=== PATIENT | male | born 2005 | race Caucasian/White ===

== ENCOUNTER 2025-03-23 14:45 | Observation (INO) ==
--- NOTE | 2025-03-23 15:08 | Emergency Department Note ---
History of Present Illness General Chief complaint: Shortness of Breath/Dyspnea Stated complaint: SOB, STRUGGLING TO BREATH Time Seen by Provider: 03/23/25 14:54 History of Present Illness This is a 19-year-old male who presents to the emergency department via private vehicle with complaints of "shortness of breath, struggling to breathe". The patient states that earlier today he began with dyspnea. This was unprovoked. He notes history of childhood asthma but notes he has not experience any wheezing today and has not had any asthma exacerbations since a child. He denies any chest pain. Patient denies any pertinent past medical history, surgeries or medication allergies. No exacerbating or alleviating factors. The patient did note he drank coffee earlier today but that is not unusual for him. He denies any drug use. Occasional alcohol use but not regular. No smoking. Home Medications Medication Instructions Recorded Confirmed Type No Known Home Medications 03/23/25 03/23/25 History Allergies Allergy/AdvReac Type Severity Reaction Status Date / Time No Known Allergies Allergy Verified 08/15/23 19:53 Past Med/Surg History Problem List (Updated 03/23/25 @ 20:58 by Shmuel Elmore PA-C) Frequent PVCs (Acute) Dyspnea (Acute) No significant past surgical history No chronic diseases present Medical History No chronic diseases present Surgical History No significant past surgical history Social History Smoking Status: Never smoker Preferred Language: Sinhala Feels Safe at Home: Yes Review of Systems A total of 10 systems reviewed and were otherwise negative Physical Exam Vital Signs Vital Signs - 24 hr 03/23/25 14:46 03/23/25 15:03 03/23/25 15:04 Temperature 36.8 C Temperature Source Temporal Artery Scan Pulse Rate 83 66 Pulse Rhythm Respiratory Rate 12 14 Respiratory Effort / Characteristics Non-Labored Respiratory Depth Normal Blood Pressure 153/89 H 146/101 H Blood Pressure Mean 110 116 Pulse Oximetry 100 99 99 Oxygen Delivery Method Room Air Room Air Room Air Oxygen Flow Rate 0 Sepsis Recent Fever Within 48 Hours No Sepsis New/Unexplained Change in Mental Status N/A Sepsis Action Taken by Nursing No Action Required 03/23/25 15:14 03/23/25 15:30 03/23/25 15:44 Temperature Temperature Source Pulse Rate 66 67 62 Pulse Rhythm Regular Respiratory Rate 14 14 Respiratory Effort / Characteristics Respiratory Depth Blood Pressure 125/75 Blood Pressure Mean 96 Pulse Oximetry 99 96 Oxygen Delivery Method Room Air Oxygen Flow Rate Sepsis Recent Fever Within 48 Hours Sepsis New/Unexplained Change in Mental Status Sepsis Action Taken by Nursing 03/23/25 16:33 03/23/25 16:33 03/23/25 17:00 Temperature Temperature Source Pulse Rate 65 65 77 Pulse Rhythm Respiratory Rate 18 18 13 Respiratory Effort / Characteristics Respiratory Depth Blood Pressure 123/76 Blood Pressure Mean 98 Pulse Oximetry 96 Oxygen Delivery Method Oxygen Flow Rate Sepsis Recent Fever Within 48 Hours Sepsis New/Unexplained Change in Mental Status Sepsis Action Taken by Nursing 03/23/25 18:30 03/23/25 19:06 Temperature Temperature Source Pulse Rate 59 L 71 Pulse Rhythm Respiratory Rate 20 Respiratory Effort / Characteristics Respiratory Depth Blood Pressure Blood Pressure Mean Pulse Oximetry 99 Oxygen Delivery Method Oxygen Flow Rate Sepsis Recent Fever Within 48 Hours Sepsis New/Unexplained Change in Mental Status Sepsis Action Taken by Nursing VITAL SIGNS - Vital signs and nursing notes were reviewed. Stable and afebrile. GENERAL -19-year-old male appearing his stated age who is in no acute distress. Communicates well with provider and answers questions appropriately. SKIN - Without rashes. No meningeal or petechial rash. HEAD - NC/AT. EYES -pupils are dilated but otherwise PERRL with EOMI bilaterally. Sclera anicteric. EARS - No deformities of external structures noted on gross examination bilaterally. NOSE - Midline and without cyanosis. No epistaxis or purulent drainage noted. MOUTH/OROPHARYNX - Without perioral cyanosis. NECK - Neck with FROM. No nuchal rigidity. LUNGS - CTA CARDIAC - RRR ABDOMEN - Abdominal contour normal without pulsations or visible masses. BS normoactive all four quadrants. No tenderness, palpable masses, hepatosplenomegaly, or ascites noted. EXTREMITIES - No clubbing or peripheral cyanosis. +5/5 strength noted in UE/LE bilaterally. NEUROLOGIC - Cranial nerves grossly intact. Sensory intact to light touch throughout PSYCH -alert, oriented and pleasant on exam. Course Administered Medications Discontinued Medications Potassium Chloride (Potassium Chloride Crtab 20 Meq Tabcr) 20 meq PO NOW STA Stop: 03/23/25 16:33 Last Admin: 03/23/25 17:37 Dose: 20 meq Documented By: REJI Medical Decision Making Laboratory Data 03/23/25 15:13 03/23/25 15:13 Lab Results 03/23/25 03/23/25 Range/Units 15:13 16:59 WBC 7.74 (4.8-10.8) K/ul RBC 5.72 (4.70-6.10) M/uL Hgb 16.8 (14.0-18.0) g/dl Hct 48.1 (42.0-52.0) % MCV 84.1 (80.0-100.0) fL MCH 29.4 (25.0-34.0) pg MCHC 34.9 (32.0-36.0) g/dL RDW Std Deviation 38.1 (36.4-46.3) fL RDW Coeff of Magdalena 12.5 (11.5-14.5) % Plt Count 236 (130-400) K/uL MPV 9.4 (9.4-12.4) fL Immature Gran % (Auto) 0.4 % Neut % (Auto) 72.6 % Lymph % (Auto) 18.7 % [place] % (Auto) 6.5 % Eos % (Auto) 1.0 % Baso % (Auto) 0.8 % Neut # (Auto) 5.62 (1.40-6.50) K/uL Lymph # (Auto) 1.45 (1.20-3.40) K/uL [place] # (Auto) 0.50 (0.11-0.59) K/uL Eos # (Auto) 0.08 (0.00-0.50) K/uL Baso # (Auto) 0.06 (0.00-0.20) K/uL Immature Gran # (Auto) 0.03 (0.01-0.20) K/uL PT 11.1 (9.0-12.0) Seconds INR 1.0 (0.9-1.1) APTT 32 H (21-31) Seconds PTT Ratio 1.2 D-Dimer < 190 (0-500) ug/L FEU Sodium 136 (136-145) mmol/L Potassium 3.3 L (3.5-5.1) mmol/L Chloride 100 (98-107) mmol/L Carbon Dioxide 24 (21-32) mmol/L Anion Gap 12 H (3-11) BUN 19 (6-23) mg/dl Creatinine 0.87 (0.6-1.4) mg/dl Est Cr Clr Drug Dosing 130.5 ml/min eGFR 125.90 BUN/Creatinine Ratio 21.8 H (10-20) Glucose 102 H (70-99(Fasting)) mg/dl Calcium 10.1 (8.6-10.3) mg/dl Magnesium 2.0 (1.7-2.4) mg/dl Total Bilirubin 0.6 (0.2-1.0) mg/dl AST 26 (13-39) U/L ALT 25 (7-52) U/L Alkaline Phosphatase 61 (34-104) U/L Troponin I High Sens < 2.3 < 2.3 (0-20) pg/ml Total Protein 7.9 (6.0-8.3) gm/dl Albumin 5.0 (3.4-5.0) gm/dl Globulin 2.9 (2.5-4.0) gm/dl Albumin/Globulin Ratio 1.7 (0.9-2) TSH 3.152 (0.300-4.500) uIu/ml Lyme Disease Screen Negative (Negative) Imaging Data Radiologist's Impression: Chest X-Ray 03/23/25 15:07 XR chest 1V portable CLINICAL HISTORY: dyspnea COMPARISON STUDY: None FINDINGS: Heart size and pulmonary vasculature are normal. No consolidation or pleural effusion. No pneumothorax. IMPRESSION: No acute findings. ACT 112: Negative or not required by law. Electronically signed by: Hayden Persaud M.D. 03/23/2025 3:[address] [facility] Narrative Patient was seen and evaluated as above in room B4. Review was performed of triage nursing notes and vital signs. I did review pertinent previous visits and patient history. After obtaining a thorough history and physical examination the above work up was performed. Patient presents to us today for evaluation of dyspnea. Please see HPI for full details. The patient has stable vital signs. Options of care were discussed with the patient. IV access was established. Labs were drawn. EKG was performed. This reveals sinus rhythm at a rate of 64 bpm. PVCs noted. QTc 443. QRS 100. There is no ST elevation. Left axis deviation. Chest x-ray negative. CBC reveals no leukocytosis or concerning anemia. D-dimer within normal range making PE less likely. Hypokalemia 3.3 which was repleted orally. There is no evidence of kidney or liver failure. Troponin x 2 negative. TSH was euthyroid state. Lyme testing negative. The patient does have frequent PVCs noted on the traffic monitor specialist. It is possible that he is symptomatic with some of the frequent PVCs. 1757: I spoke with cardiology Dr. Bah. Our initial discussion was for outpatient follow-up and likely outpatient echocardiogram. I discussed this with patient and mother via phone as the patient did have mother on speaker phone when I discussed findings. The mother does add that the patient's uncle passed from cardiac arrest in his 20s. I discussed options. We will proceed with cardiac monitoring overnight and likely echocardiogram tomorrow. I discussed this with the hospitalist service. Please refer to further documentation regarding his stay. GCS: 15 In the evaluation and treatment of this patient the following differential diagnoses were entertained: Arrhythmia, electrolyte disturbance, ACS, CO, PE, among others Impression & Plan Dyspnea, Frequent PVCs Discharge Plan Visit Data Chief Complaint: Shortness of Breath/Dyspnea Stated Complaint: SOB, STRUGGLING TO BREATH ED Provider: Lane Liang ED Midlevel Provider: Shmuel Elmore Discharge Problem: Dyspnea, Frequent PVCs Patient Disposition: Admitted As Inpatient Condition: Good Forms Stand Alone Forms: My [employer] Prescriptions Prescriptions: No Action No Known Home Medications Referrals Referrals: [facility] [Primary Care Provider] -
--- NOTE | 2025-03-23 15:27 | XRay Report ---
XR chest 1V portable CLINICAL HISTORY: dyspnea COMPARISON STUDY: None FINDINGS: Heart size and pulmonary vasculature are normal. No consolidation or pleural effusion. No p neumothorax. IMPRESSION: No acute findings. ACT 112: Negative or not required by law. Electronically signed by: Hayden Persaud M.D. 03/23/2025 3:25 PM
[2025-03-23 15:32] LABS: Hematocrit (blood only) 48.1 % (42.0-52.0); Hemoglobin 16.8 g/dl (14.0-18.0); Immature Granulocytes # (auto) 0.03 K/uL (0.01-0.20); Immature Granulocytes % (auto) 0.4 %; Mean Corpuscular Hemoglobin 29.4 pg (25.0-34.0); Mean Corpuscular Volume 84.1 fL (80.0-100.0); Platelet Count 236 K/uL (130-400); RDW Standard Deviation 38.1 fL (36.4-46.3); Red Blood Count 5.72 M/uL (4.70-6.10); White Blood Count 7.74 K/ul (4.8-10.8)
[2025-03-23 15:49] LABS: Alanine Aminotransferase 25 U/L (7-52); Albumin Globulin Ratio 1.7 (0.9-2); Alkaline Phosphatase 61 U/L (34-104); Anion Gap 12 (3-11); Bilirubin,Total 0.6 mg/dl (0.2-1.0); Blood Urea Nitrogen 19 mg/dl (6-23); Calcium 10.1 mg/dl (8.6-10.3); Carbon Dioxide 24 mmol/L (21-32); Chloride 100 mmol/L (98-107); Creatinine Clr Calc Pharmacy 130.5 ml/min; Globulin 2.9 gm/dl (2.5-4.0); Glucose 102 mg/dl (70-99(Fasting)); Magnesium 2.0 mg/dl (1.7-2.4); Potassium 3.3 mmol/L (3.5-5.1); Sodium 136 mmol/L (136-145); Total Protein 7.9 gm/dl (6.0-8.3)
[2025-03-23 16:05] LABS: Thyroid Stimulating Hormone 3.152 uIu/ml (0.300-4.500)
[2025-03-23 16:20] LABS: INR 1.0 (0.9-1.1); Partial Thromboplastin Time 32 Seconds (21-31); Prothrombin Time 11.1 Seconds (9.0-12.0)
[2025-03-23] MEDS: POTASSIUM CHLORIDE CRTAB 20 MEQ TABCR PO STA (17:37)
--- NOTE | 2025-03-23 20:53 | History & Physical Report ---
Date of Service March 23, 2025 Assessment & Plan (1) Frequent PVCs: (2) Dyspnea: (3) No significant past surgical history: (4) No chronic diseases present: (5) Asthma: Plan 19 yrs old male presents with SOB with PMH of asthma, On observation to monitor overnight on telemetry with EKG presentation of PVC. #Dyspnea: - A day of sob with Ekg finding of PVC. - D-dimer negative, Lyme negative which r/o the possibility of any myocarditis. - Troponin negative . - Ordered Echo bubble study to r/o structural heart disease, valvular disease, HOCM. - Ordered Urine drug screen to r/o any use of stimulants. - Will r/o the possibility of HOCM findings in echo because of family H/o cardiac arrest in uncle and the presentation with SOB. - Will monitor overnight on telemetry. History of Present Illness Chief Complaint: Shortness of breath x today morning Primary Care Provider: [facility] 19 yrs old male with PMH of asthma presents to the ED with shortness of breath after he woke up today morning, started suddenly when he started studying for tomorrow's exam, exacerbated on activity so he laid down on bed which improved his sob. Also associated with palpitations. Lasted for total of 3 hrs and made him visit to ED. H/o cardiac arrest in uncle at age of 27. Reports mood to be good. Never had asthma attack since he was kid. No H/o chest pain, fever, cough. Allergies Allergy/AdvReac Type Severity Reaction Status Date / Time No Known Allergies Allergy Verified 08/15/23 19:53 Home Medications Medication Instructions Recorded Confirmed Type No Known Home Medications 03/23/25 03/23/25 History Past Med/Surg History Problem List Asthma Frequent PVCs (Acute) Dyspnea (Acute) No significant past surgical history No chronic diseases present Social History Smoking Status: Never smoker Hx Alcohol Use: Yes Alcohol type: beer Hx Substance Use: No Preferred Language: Urdu Communication Ability: Effective Cuff Maker Required: No Beliefs That Will Affect Care: None Current Living Situation: Other Other Information That Helps Us Care for You: No Feels Safe at Home: Yes Safety Concerns: Feels Safe At This Time Assistive Devices: Contacts and Glasses Review of Systems Review of Systems: As per HPI. Physical Exam Physical Exam: GENERAL -No acute distress SKIN - No rash. HEENT- B/l dilated pupil. Other examination unremarkable. LUNGS - B/l equal breath soounds. CARDIAC - Normal rate and rhythm, NO murmur, gallops. ABDOMEN - Abdominal contour normal without pulsations or visible masses. BS normoactive all four quadrants. No tenderness, palpable masses, hepatosplenomegaly, or ascites noted. EXTREMITIES - No clubbing or peripheral cyanosis. +5/5 strength noted in UE/LE bilaterally. NEUROLOGIC - Cranial nerves grossly intact. Sensory intact to light touch throughout PSYCH -alert, oriented and pleasant on exam. Results & Data Results & Data Vital Signs (Past 12 Hours) Vital Signs Temp Pulse Resp BP Pulse Ox O2 Del Method O2 Flow Rate 03/23/25 19:06 71 03/23/25 18:30 59 L 20 99 03/23/25 17:00 77 13 03/23/25 16:33 65 18 03/23/25 16:33 65 18 123/76 96 03/23/25 15:44 62 03/23/25 15:30 67 14 125/75 96 03/23/25 15:14 66 14 99 Room Air 03/23/25 15:04 66 14 146/101 H 99 Room Air 03/23/25 15:03 99 Room Air 0 03/23/25 14:46 36.8 C 83 12 153/89 H 100 Room Air Laboratory Results Laboratory Results WBC 7.74 K/ul (4.8-10.8) 03/23/25 15:13 RBC 5.72 M/uL (4.70-6.10) 03/23/25 15:13 Hgb 16.8 g/dl (14.0-18.0) 03/23/25 15:13 Hct 48.1 % (42.0-52.0) 03/23/25 15:13 MCV 84.1 fL (80.0-100.0) 03/23/25 15:13 MCH 29.4 pg (25.0-34.0) 03/23/25 15:13 MCHC 34.9 g/dL (32.0-36.0) 03/23/25 15:13 RDW Std Deviation 38.1 fL (36.4-46.3) 03/23/25 15:13 RDW Coeff of Magdalena 12.5 % (11.5-14.5) 03/23/25 15:13 Plt Count 236 K/uL (130-400) 03/23/25 15:13 MPV 9.4 fL (9.4-12.4) 03/23/25 15:13 Immature Gran % (Auto) 0.4 % 03/23/25 15:13 Neut % (Auto) 72.6 % 03/23/25 15:13 Lymph % (Auto) 18.7 % 03/23/25 15:13 [place] % (Auto) 6.5 % 03/23/25 15:13 Eos % (Auto) 1.0 % 03/23/25 15:13 Baso % (Auto) 0.8 % 03/23/25 15:13 Neut # (Auto) 5.62 K/uL (1.40-6.50) 03/23/25 15:13 Lymph # (Auto) 1.45 K/uL (1.20-3.40) 03/23/25 15:13 [place] # (Auto) 0.50 K/uL (0.11-0.59) 03/23/25 15:13 Eos # (Auto) 0.08 K/uL (0.00-0.50) 03/23/25 15:13 Baso # (Auto) 0.06 K/uL (0.00-0.20) 03/23/25 15:13 Immature Gran # (Auto) 0.03 K/uL (0.01-0.20) 03/23/25 15:13 PT 11.1 Seconds (9.0-12.0) 03/23/25 15:13 INR 1.0 (0.9-1.1) 03/23/25 15:13 APTT 32 Seconds (21-31) H 03/23/25 15:13 PTT Ratio 1.2 03/23/25 15:13 D-Dimer < 190 ug/L FEU (0-500) 03/23/25 15:13 Sodium 136 mmol/L (136-145) 03/23/25 15:13 Potassium 3.3 mmol/L (3.5-5.1) L 03/23/25 15:13 Chloride 100 mmol/L (98-107) 03/23/25 15:13 Carbon Dioxide 24 mmol/L (21-32) 03/23/25 15:13 Anion Gap 12 (3-11) H 03/23/25 15:13 BUN 19 mg/dl (6-23) 03/23/25 15:13 Creatinine 0.87 mg/dl (0.6-1.4) 03/23/25 15:13 Est Cr Clr Drug Dosing 130.5 ml/min 03/23/25 15:13 eGFR 125.90 03/23/25 15:13 BUN/Creatinine Ratio 21.8 (10-20) H 03/23/25 15:13 Glucose 102 mg/dl (70-99(Fasting)) H 03/23/25 15:13 Calcium 10.1 mg/dl (8.6-10.3) 03/23/25 15:13 Magnesium 2.0 mg/dl (1.7-2.4) 03/23/25 15:13 Total Bilirubin 0.6 mg/dl (0.2-1.0) 03/23/25 15:13 AST 26 U/L (13-39) 03/23/25 15:13 ALT 25 U/L (7-52) 03/23/25 15:13 Alkaline Phosphatase 61 U/L (34-104) 03/23/25 15:13 Troponin I High Sens < 2.3 pg/ml (0-20) 03/23/25 16:59 Total Protein 7.9 gm/dl (6.0-8.3) 03/23/25 15:13 Albumin 5.0 gm/dl (3.4-5.0) 03/23/25 15:13 Globulin 2.9 gm/dl (2.5-4.0) 03/23/25 15:13 Albumin/Globulin Ratio 1.7 (0.9-2) 03/23/25 15:13 TSH 3.152 uIu/ml (0.300-4.500) 03/23/25 15:13 Urine Opiates Screen Neg (Neg) 03/23/25 21:55 Ur Methadone, Qual Neg (Neg) 03/23/25 21:55 Urine Fentanyl Screen Neg (Neg) 03/23/25 21:55 Urine Barbiturates Neg (Neg) 03/23/25 21:55 Ur Phencyclidine (PCP) Neg (Neg) 03/23/25 21:55 U Amphetamin/Meth Scrn Neg (Neg) 03/23/25 21:55 MDMA (Ecstasy) Screen Neg (Neg) 03/23/25 21:55 U Benzodiazepines Scrn Neg (Neg) 03/23/25 21:55 Ur Cocaine Metabolite Neg (Neg) 03/23/25 21:55 U Marijuana (THC) Screen Neg (Neg) 03/23/25 21:55 Lyme Disease Screen Negative (Negative) 03/23/25 15:13 Impressions Chest X-Ray 03/23/25 15:07 XR chest 1V portable CLINICAL HISTORY: dyspnea COMPARISON STUDY: None FINDINGS: Heart size and pulmonary vasculature are normal. No consolidation or pleural effusion. No pneumothorax. IMPRESSION: No acute findings. ACT 112: Negative or not required by law. Electronically signed by: Hayden Persaud M.D. 03/23/2025 3:25 PM ECG Additional Comments: EKG reviewed, SR with PVCs, KB=287, ZWE=461. GRs=700, low voltage QRS, leftward axis Supervising Physician Co-Signing Physician Notes Patient seen and examined, chart reviewed, case discussed with Dr. Swartz and I agree with the assessment and plan as above. In brief, patient is a 19yo male with history of asthma presenting with palpitations and shortness of breath. No history of prior. Patient began experiencing episodes of palpitations today with difficulty breathing. No chest pain. Denies drug use, or excess caffeine. Patient is active - runner and lifts weights. Has never experienced shortness of breath, palpitations lightheadedness or syncope during or following activity. No personal cardiac history but does have an uncle that of a cardiac arrest at age 27 (uncle had history of persistent seizures, ?SUDE vs other etiology?) On exam patient is afebrile, HD stable +S1/S2, regular, no m/r/g, no murmur auscultated with handgrip Lungs CTA Abd soft, NT/ND Ext warm, well perfused Labs and images reviewed, Mildly low K. TSH WNL. UTox is unremarkable as is Lyme screen. Troponin x 7 NEGATIVE. Labs otherwise unremarkable CXR with normal cardiac silhouette, no evidence of failure EKG as above with PVCs Assessment/Plan -Telemetry monitoring -Check 2D echo with bubble study -BMP in AM with additional K if needed -Remainder as above Resident Activity Tracking Resident Involvement: Resident Care Provided Care Provided: Adult Hospital Medicine
[2025-03-23] MEDS ORDERED: ALUMINUM/MAGNESIUM SUSP 30 ML UDC PO PRN (21:02)
[2025-03-23] MEDS ORDERED: ACETAMINOPHEN 325 MG TAB PO PRN (21:02)
[2025-03-23] MEDS ORDERED: ONDANSETRON INJ 2 MG/ML 2 ML VIAL IV PRN (21:02)
[2025-03-23] MEDS ORDERED: MAGNESIUM HYDROXIDE SUSP 30 ML UDC PO PRN (21:02)
[2025-03-23] MEDS ORDERED: POLYETHYLENE (MIRALAX) 17 GM PACK PO PRN (21:02)
[2025-03-23] MEDS ORDERED: MELATONIN 3 MG TAB PO PRN (21:02)
[2025-03-23 22:56] LABS: Amphetamines+Metham, Urine Neg (Neg); MDMA (Ecstacy), Urine Neg (Neg); Marijuana, Urine Neg (Neg)
[2025-03-23 23:15] VITALS: RESP 18
--- NOTE | 2025-03-24 01:54 | Billing Data ---
Date of Service March 23, 2025 Coding Level of Care Code 22482 INT INP/OBS CARE
[2025-03-24 06:42] LABS: Anion Gap 9.0 (3-11); Blood Urea Nitrogen 19.0 mg/dl (6-23); Calcium 9.6 mg/dl (8.6-10.3); Carbon Dioxide 26.0 mmol/L (21-32); Chloride 103.0 mmol/L (98-107); Creatinine Clr Calc Pharmacy 123.5 ml/min; Glucose 88.0 mg/dl (70-99(Fasting)); Potassium 3.8 mmol/L (3.5-5.1); Sodium 138.0 mmol/L (136-145)
--- NOTE | 2025-03-24 09:52 | Hospitalist Progress Note ---
Date of Service March 24, 2025 Assessment & Plan (1) Frequent PVCs: (2) Dyspnea: (3) No significant past surgical history: (4) No chronic diseases present: (5) Asthma: Plan 19 yrs old male presents with SOB with PMH of asthma, On observation to monitor overnight on telemetry with EKG presentation of PVC. #Dyspnea: - A day of sob with Ekg finding of PVC. - D-dimer negative, Lyme negative which r/o the possibility of any myocarditis. - Troponin negative . - Ordered Echo bubble study to r/o structural heart disease, valvular disease, HOCM. - Ordered Urine drug screen to r/o any use of stimulants. - Will r/o the possibility of HOCM findings in echo because of family H/o cardiac arrest in uncle and the presentation with SOB. - Will monitor overnight on telemetry. Admission and Anticipated Discharge Date Admission Date: March 23, 2025 Results & Data Results & Data Vital Signs (Past 12 Hours) Vital Signs Temp Pulse Pulse Resp BP BP Pulse Ox 03/24/25 07:37 36.2 C L 60 18 114/67 97 03/23/25 23:07 36.6 C 72 18 128/85 95 03/23/25 23:02 62 03/23/25 22:33 63 15 98 03/23/25 22:30 128/78 03/23/25 22:30 128/78 03/23/25 22:21 54 L 16 98 03/23/25 22:15 69 15 96 03/23/25 22:00 125/77 03/23/25 22:00 125/77 03/23/25 21:57 63 14 96 O2 Del Method 03/24/25 07:37 Room Air 03/23/25 23:07 Room Air 03/23/25 23:02 03/23/25 22:33 03/23/25 22:30 03/23/25 22:30 03/23/25 22:21 03/23/25 22:15 03/23/25 22:00 03/23/25 22:00 03/23/25 21:57
[2025-03-24 11:06] LABS: Cholesterol 210.0 mg/dl (0-200); HDL Cholesterol 61.0 mg/dl; Triglycerides 113.0 mg/dl (0-150)
[2025-03-24 11:22] VITALS: BP 129/67; TEMP 98.1; O2SAT 96
--- NOTE | 2025-03-24 14:22 | XCELERA ---
[id number]
[2025-03-24 15:05] VITALS: PULSE 75
--- NOTE | 2025-03-24 17:39 | Discharge Summary ---
Date of Service March 24, 2025 Admission HPI Per Admitting Provider 19 yrs old male with PMH of asthma presents to the ED with shortness of breath after he woke up today morning, started suddenly when he started studying for tomorrow's exam, exacerbated on activity so he laid down on bed which improved his sob. Also associated with palpitations. Lasted for total of 3 hrs and made him visit to ED. H/o cardiac arrest in uncle at age of 25. Reports mood to be good. Never had asthma attack since he was kid. No H/o chest pain, fever, cough. Admission Exam Per Admitting Provider GENERAL -No acute distress SKIN - No rash. HEENT- B/l dilated pupil. Other examination unremarkable. LUNGS - B/l equal breath soounds. CARDIAC - Normal rate and rhythm, NO murmur, gallops. ABDOMEN - Abdominal contour normal without pulsations or visible masses. BS normoactive all four quadrants. No tenderness, palpable masses, hepatosplenomegaly, or ascites noted. EXTREMITIES - No clubbing or peripheral cyanosis. +5/5 strength noted in UE/LE bilaterally. NEUROLOGIC - Cranial nerves grossly intact. Sensory intact to light touch throughout PSYCH -alert, oriented and pleasant on exam. Principal Diagnosis SOB Frequent PVCs. Discharge Exam GENERAL -No acute distress SKIN - No rash. HEENT- B/l pupils RRR LUNGS - B/l equal air enrty, no added sound. CARDIAC - Normal rate and rhythm, few extra beats noted( 2-3 in 30 seconds). ABDOMEN - Soft, Non tender NEUROLOGIC - Cranial nerves grossly intact. Sensory intact to light touch throughout PSYCH -alert, oriented and pleasant on exam. Discharge Data Allergies Allergy/AdvReac Type Severity Reaction Status Date / Time No Known Allergies Allergy Verified 08/15/23 19:53 Consultations 03/23/25 19:30 ED Decision to Admit Stat Hospital Course (1) Frequent PVCs: (2) Dyspnea: (3) No significant past surgical history: (4) No chronic diseases present: (5) Asthma: Plan 19 yrs old male admitted for SOB of unclear reason. ED work- up unremarkable except presence of frequent PVCs on EKG. Overnight tele: Persistent PVCs However Eloy was no more dyspneic after admission. Echocardiogram unremarkable. Cardiology was curb sided on ED. Does not plan any Intervention for now. Plan: - Cardiac event monitor; ordered. - F.U cardiology office. Total Time Total Time Spent Total Time Spent (In Minutes): See attending's attestation Discharge Plan Discharge Items Patient Disposition: Home - Self-Care Reason For Visit: SHORTNESS OF BREATH Discharge Diagnosis: PVCs Condition on Discharge: Good Activity: Resume your previous activity Non-emergency contact: Primary Care Provider and Drum Filler Call non-emergency contact if: your symptoms worsen Follow-up/Referrals: [facility] [Primary Care Provider] - Diet: Regular Addtl Attending Provider Instructions: You were admitted to the hospital for sudden SOB. Cardiac and lung evaluation was done with labs, EKG and imaging. We ruled out major emergencies like Pulmonary embolism, Heart attacks through these tests. Incidentally your EKG showed some PVCs, i.e your ventricle was found to be beating with some extra brad ts. Since your symptom was concerning, we admitted you for overnight observation. On hospital stay, your symptoms resolved and telemetry monitoring did not find any other changes in EKG except from frequent PVCs. Given your symptoms have also resolved this is very reassuring. Echocardiogram was done which showed normal parameters. Minor electrolyte change i.e. your Potassium being mildly low was also corrected. Hence we are discharging you home with recommendation of use of monitoring with cardiac recorder. We have sent the order in, device will be mailed to your house and follow the instruction to put in. After this, please schedule f.u with cardiology. A discharge summary will be sent to your primary care physician to ensure continuity of care. Please bring this discharge summary with you to your next office appointment so that your provider can review it at that time. Medications: Your medication list has been reviewed and reconciled upon discharge to ensure accuracy and continuity of care. An updated list of all your medications is included with your hospital discharge paperwork. Please review this list closely and make note of any changes to your medications. NO medication changes Follow up appointments: - Make a follow up appointment with your PCP within the next week. It is very important that you follow up with them shortly after discharge from the hospital. - Please schedule f.u with cardiology team. Case management has sent the referral in, you should be receiving call from their office soon. - Keep all of your follow up appointments as already scheduled. If you cannot make an appointment, notify your provider. CONTACT YOUR PRIMARY CARE PROVIDER if you experience any of the following: - Difficulty following your treatment plan - Difficulty taking any of your medications CALL 911 OR GO TO THE EMERGENCY DEPARTMENT if you experience any of the follo wing: - Severe chest pain or chest pain that radiates to your jaw or arm - Sudden, severe abdominal pain or nausea/vomiting - Severe chest pain or chest pain that radiates to your jaw or arm - Sudden, severe shortness of breath or difficulty breathing Pending Studies at Discharge: No Stand-Alone Forms: [facility], Sm[facility] Cess[facility] Medications and DC Order Prescriptions: New albuterol sulfate 90 mcg/actuation HFA aerosol inhaler 1 inh inhalation Q6H PRN (Reason: shortness of breath or wheezing) Qty: 6.7 0RF Discharge Orders: Discharge Order (Routine); Ordered 03/24/25 Ordered By: Katie Villarreal/Other Patient Handouts: Premature Ventricular Contract Tx, ED Shortness of Breath (Dyspnea) Admission Data Admit Date/Time: 03/23/25 21:02 Attending Provider: Nakul Ley Admit Provider: Laureen Swartz Primary Care Provider: [facility] Other Providers: Brenda Gill Other Interventions: Discharge Summary Assessment (RN) Last Done: 03/24/25 14:47 Resident Activity Tracking Resident Involvement: Resident Care Provided Care Provided: Adult Hospital Medicine
== END 2025-03-24 15:19 | disposition home or self-care (01) ==
LOC: ED 14:45 → 2S 14:45 → SUATTDRO 21:02 → 2S 22:39